=== PATIENT | male | born 1935 | race African-American/Black ===

== ENCOUNTER 2017-04-03 13:49 | Emergency (ER) | payer MEDICARE, OTHER ==
[~2017-04-03 13:49] MED LIST: AMLO10TA2 PO; CIPR500T94 PO; LOSA50TA6 PO; METO25TA4 PO; SIMV20TA3 PO; TAMS0.4C2 PO
[2017-04-03 13:57] VITALS: BP 134/87
--- NOTE | 2017-04-03 16:05 | PHYS DOC ---
Past Medical History Past Medical History: CVA, Hypertension Past Surgical History: No Surgical History Alcohol Use: Occasionally Drug Use: None Adult General Chief Complaint Chief Complaint: URINE CATHETER PROBLEM HPI HPI Patient is a 81 year old Afro-Swedish [place] male with history of suprapubic catheter who presents with a suprapubic catheter dysfunction. Patient somehow she cut the balloon inflation tip of his suprapubic catheter office prior to ED arrival. Suprapatellar catheter still in place is tied off. She denies any other complaints other than needed for suprapubic catheter replacement. She has had suprapubic catheter in place for 3 years and he sees a urologist is at [facility] Review of Systems Review of Systems ROS as per HPI. Allergies Allergies Allergies Coded Allergies Type Severity Reaction Last Updated Verified No Known Drug Allergies 01/01/15 No Physical Exam Physical Exam Constitutional: Well developed, well nourished, no acute distress, non-toxic appearance. [] HENT: Normocephalic, atraumatic, bilateral external ears normal, oropharynx moist, no oral exudates, nose normal. [] Eyes: PERRLA, EOMI, conjunctiva normal, no discharge. [] Neck: Normal range of motion, no tenderness, supple, no stridor. [] Cardiovascular:Heart rate regular rhythm, no murmur [] Lungs & Thorax: Bilateral breath sounds clear to auscultation [] Abdomen: Bowel sounds normal, a supapubic catheter in place with tip removed. Abdomen soft nontender. [] Skin: Warm, dry, no erythema, no rash. [] Back: No tenderness, no CVA tenderness. [] Extremities: No tenderness, no cyanosis, no clubbing, ROM intact, no edema. [] Neurologic: Alert and oriented X 3, normal motor function, normal sensory function, no focal deficits noted. [] Psychologic: Affect normal, judgement normal, mood normal. [] Current Patient Data Vital Signs Vital Signs Date Time Temp Pulse Resp B/P (MAP) Pulse Ox O2 Delivery O2 Flow Rate FiO2 04/03/17 13:57 97.8 89 16 134/87 (103) 99 Room Air 97.8 EKG EKG [] Radiology/Procedures Radiology/Procedures [] Course & Med Decision Making Course & Med Decision Making Pertinent Labs and Imaging studies reviewed. (See chart for details) Suprapubic catheter replacement procedure note Patient's abdomen was placed with Betadine around his suprapubic catheter insertion site. The existing catheter is then gently removed and a replacement 18 Upper [place] catheter was then easily introduced. The bulb was then inflated with 10 mL of normal saline. The catheter was confirmed to be functional with immediate return of urine. The catheter was then bandaged with no bleeding noted. Patient's instructed to follow-up with his [facility] urologist. Return precautions reviewed.] Dragon Disclaimer Dragon Disclaimer This electronic medical record was generated, in whole or in part, using a voice recognition dictation system. Departure Departure Impression: Primary Impression: Suprapubic catheter dysfunction Disposition: 01 HOME, SELF-CARE Condition: GOOD Patient Instructions: Suprapubic Catheter Replacement, Care After Additional Instructions: Please follow-up with your [facility] urologist as needed and PCP as scheduled. NANCY NAYAK DO Apr 03, 2017 16:05
== END 2017-04-03 16:15 | disposition home or self-care (01) ==
LOC: ER 13:49
DX: T83.090A Other mechanical complication of cystostomy catheter, initial encounter (principal); I10 Essential (primary) hypertension; Z86.73 Personal history of transient ischemic attack (TIA), and cerebral infarction without residual deficits; Y93.89 Activity, other specified; Y99.8 Other external cause status; Y92.89 Other specified places as the place of occurrence of the external cause
CPT/HCPCS: 51705; 99284-25